=== PATIENT | female | born 1975 | race Caucasian/White ===

== ENCOUNTER 2017-05-05 20:17 | Emergency (ER) | payer OTHER ==
[2017-05-05] MEDS ORDERED: NS 0.9% 1000 ML* 1,000 ML IV ONE (22:25)
[2017-05-05] MEDS ORDERED: Metoclopramide IV* 5 MG/ML 2 ML VIAL IV ONE (22:25)
[2017-05-05 23:03] LABS: Hematocrit 39 % (35-47); Hemoglobin 13.3 g/dl (12.0-16.0); Mean Corpuscular HGB Conc 34 g/dl (31-36); Mean Corpuscular Hemoglobin 33 pg (27-31); Mean Corpuscular Volume 97 fL (80-97); Mean Platelet Volume 8 um3 (7.4-10.4); Red Blood Count 3.99 10^6/ul (4.0-5.4); Red Cell Distribution Width 12 % (10.5-15); White Blood Count 5.8 10^3/ul (3.5-10.8)
[2017-05-05 23:24] LABS: BUN/Creatinine Ratio 13.4 (8-20); Calcium 9.1 mg/dL (8.6-10.3); EGFR African American 124.1 (>60); EGFR Non-African American 96.5 (>60); Globulin 2.9 g/dL (2-4); Potassium 3.4 mmol/L (3.5-5.0); Total Bilirubin 0.4 mg/dL (0.2-1.0); Total Protein 6.9 g/dL (6.4-8.9)
--- NOTE | 2017-05-05 23:31 | ED ---
I, Oh,Brina, scribed for Praneeth Donovan MD on 05/05/17 at 2315 . Headache - HPI Summary HPI Summary: This 41 y/o female presents to ED for migraine and n/v since 2 days ago. Four episodes of n/v today. Pt recently started wellbutrin, which was prescribed by her psychiatrist, and took the first dose 3 days ago, but stopped Wellbutrin since 48 hours ago when she became concerned about possible adverse reaction to the new medication. Zofran was taken without much relief. PMHx does include known migraine. Pt is currently vising [facility] from [place] in order to attend a wedding, and does not have any primary care in [facility]. - History Of Current Complaint Chief Complaint: EDHeadache Stated Complaint: NAUSEA Time Seen by Provider: 05/05/17 22:20 Hx Obtained From: Patient Hx Last Menstrual Period: has not cycled since having twins 04/2013 Onset/Duration: Gradual Onset Timing: Constant Character: Dull Location of Headache: Diffuse Aggravating Factor: Nothing Allevating Factors: Nothing Associated Signs And Symptoms: Nausea, Vomiting - Allergies/Home Medications Allergies/Adverse Reactions: Allergies Allergy/AdvReac Type Severity Reaction Status Date / Time Acetaminophen Allergy Vomiting Verified 05/05/17 20:29 [From Darvocet-N] Amoxicillin [From Augmentin] Allergy Vomiting Verified 05/05/17 20:29 Clavulanic Acid Allergy Vomiting Verified 05/05/17 20:29 [From Augmentin] Oxycodone [From Percocet] Allergy Vomiting Verified 05/05/17 20:29 Propoxyphene Allergy Vomiting Verified 05/05/17 20:29 [From Darvocet-N] PMH/Surg Hx/FS Hx/Imm Hx Endocrine/Hematology History: Reports: Hx Thyroid Disease Denies: Hx Diabetes Cardiovascular History: Denies: Hx Hypertension Respiratory History: Denies: Hx Asthma, Hx Chronic Obstructive Pulmonary Disease (COPD) GI History: Denies: Hx Ulcer Neurological History: Reports: Hx Migraine - Surgical History Surgery Procedure, Year, and Place: . csection. wisdom teeth removed. ganglion. tonsillectomy, cyst removed from eye Infectious Disease History: No Infectious Disease History: Denies: Hx Clostridium Difficile, Hx Hepatitis, Hx Human Immunodeficiency Virus (HIV), Hx of Known/Suspected MRSA, Hx Shingles, Hx Tuberculosis, Traveled Outside the [place] in Last 30 Days - Social History Alcohol Use: Rare Substance Use Type: Reports: None Smoking Status (MU): Never Smoked Tobacco Review of Systems Negative: Fever Positive: Vomiting, Nausea Positive: Headache All Other Systems Reviewed And Are Negative: Yes Physical Exam Triage Information Reviewed: Yes Vital Signs On Initial Exam: Initial Vitals Temp Pulse Resp BP Pulse Ox 97.6 F 95 16 146/98 100 05/05/17 20:29 05/05/17 20:29 05/05/17 20:29 05/05/17 20:29 05/05/17 20:29 Vital Signs Reviewed: Yes Appearance: Positive: Well-Appearing, Pain Distress - milod discomfort Skin: Positive: Warm Head/Face: Positive: Normal Head/Face Inspection Eyes: Positive: LYNN ENT: Positive: Hearing grossly normal Neck: Positive: Supple Respiratory/Lung Sounds: Positive: Clear to Auscultation, Breath Sounds Present Cardiovascular: Positive: RRR Abdomen Description: Positive: Nontender, Soft Bowel Sounds: Positive: Present Musculoskeletal: Positive: Strength/ROM Intact Neurological: Positive: Alert, Oriented to Person Place, Time AVPU Assessment: Alert - Doug Coma Scale Coma Scale Total: 15 Diagnostics - Vital Signs Vital Signs Temp Pulse Resp BP Pulse Ox 05/05/17 22:09 97.8 F 84 18 145/99 98 05/05/17 21:18 97.9 F 89 16 147/95 100 05/05/17 20:29 97.6 F 95 16 146/98 100 - Laboratory Result Diagrams: 05/05/17 22:55 05/05/17 22:55 Lab Statement: Any lab studies that have been ordered have been reviewed, and results considered in the medical decision making process. Re-Evaluation - Re-Evaluation First Eval Change: Improved - results d/w pt Headache Course/Dx - Course Assessment/Plan: This 41 y/o female presents to ED for two days old migraine and n/v. Pt expresses concern that she may be having possible adverse reaction to her new med, wellbutrin. Bloodwork is noted unremarkable. Reglan and NS IV are given in ED to control nausea. Pt remains stable throughout ED course without any recurrent nausea. - Diagnoses Provider Diagnoses: Nausea and vomiting Discharge - Discharge Plan Condition: Improved Disposition: HOME Patient Education Materials: Acute Nausea and Vomiting (ED) Referrals: [facility] [Outside] - 2 Days The documentation as recorded by the Robinson acosta Soohyun accurately reflects the service I personally performed and the decisions made by me, Praneeth Donovan MD.
[2017-05-06 01:38] VITALS: BP 133/87
== END 2017-05-06 00:55 | disposition home or self-care (01) ==
LOC: ED 20:17
DX: R11.2 Nausea with vomiting, unspecified (principal); G43.909 Migraine, unspecified, not intractable, without status migrainosus; E07.9 Disorder of thyroid, unspecified; Z88.6 Allergy status to analgesic agent; Z88.1 Allergy status to other antibiotic agents; Z88.5 Allergy status to narcotic agent
CPT/HCPCS: 36415; 80053; 85025; 96374; 99283; J2765